=== PATIENT | female | born 1955 | race American Indian/Alaskan Native ===

== ENCOUNTER 2017-12-30 09:10 | Outpatient (CLI) | payer BC, OTHER ==
--- NOTE | 2017-12-31 16:50 | Vascular Lab Report ---
MESENTERIC ARTERIAL DUPLEX Reason for exam: Mesenteric artery insufficiency Comments: The study is somewhat technically limited due to overlying bowel gas. The patient complains of 8/10 abdominal pain throughout the exam. The aorta is patent. Flow velocities are within normal limits. Atherosclerosis of the aorta is identified. A small abdominal aortic aneurysm with maximum diameter 3.41 cm is identified.. No aneurysmal dilatation is noted. The celiac artery is patent. Flow velocities are normal. No evidence of obstruction is identified. The superior mesenteric artery is patent. Flow velocities are normal. No evidence of obstruction is identified. Impression: This study does not support the diagnosis of mesenteric ischemia. A 3.4 cm infrarenal abdominal aortic aneurysm is noted.
== END 2017-12-30 09:11 | disposition home or self-care (01) ==
LOC: VAS 09:10
PROVIDERS: ATTEND Surgery Vascular Surgery
DX: I73.9 Peripheral vascular disease, unspecified (principal); I71.4 Abdominal aortic aneurysm, without rupture
CPT/HCPCS: 93979